=== PATIENT | male | born 1990 | race Two or more races ===

== ENCOUNTER 2017-01-17 19:19 | Emergency (ER) | payer MEDICAID ==
--- NOTE | 2017-01-21 11:11 | ER ---
ADMIT: 01/17/2017 RM/LOC: ER [facility] MR#: [id number] [id number] [place], [place] [address] KENDRICK DE DIOS [address] [place] [address] Emergency Room Report SEX: M AGE: 27 : 1990 DATE: 01/17/[address] Dougherty, kennel technician, at [facility]. CHIEF COMPLAINT: Right thigh pain. HISTORY OF PRESENT ILLNESS: This is a pleasant 27-year-old male, who presents to the ER with 2 days' duration of right thigh pain. The patient states he was playing basketball on Saturday when he felt "twinge" in his right thigh and had some associated pain throughout the belly of the quad and some difficulty with ambulation. 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 Dougherty. He states that he has been dosing his BeneFIX per the acute injury protocol as 4000 units every 12 hours. He typically uses 3000 units twice weekly on Mondays and Fridays. He has not phoned his kennel technician at this point. Denies any pain in the hip or knee or any limitations in range of motion. COURSE IN THE EMERGENCY ROOM: The patient was seen and examined. He does have some ecchymosis on the lateral aspect of his right thigh as well as over the medial aspect of his quad. No significant swelling is noted on exam. The muscle belly is firm, but overall the thigh compartment is not tensed by any means. He does have some tenderness throughout the muscle belly of the quad. He did not attempt to gait secondary to the pain. Vascularly, he is intact. His distal pedal pulse and posterior tib pulse is 2+ bilaterally. Sensation is intact. He has a normal range of motion of the hip and the knee. No evidence of any joint effusion on the right knee. Otherwise, unremarkable. IMPRESSION: Right quadriceps strain. DISPOSITION: I did reassure the patient that there are no concerning findings on exam today as his joints appear to be without acute effusion at this time. He certainly does have some tenderness and swelling in the quadriceps ADMIT: 01/17/2017 RM/LOC: ER [facility] MR#: [id number] [address] [address] KENDRICK DE DIOS [address] [place] [address], [place] [id number] Emergency Room Report SEX: M AGE: 27 : 1990 consistent with a recent injury. Continue to treat this conservatively with ice and Tylenol as needed for pain. I told him to avoid any aggressive massage or stretching as this could exacerbate the bleeding. He should also avoid heat for at least a week at this point. I did tell him to continue to monitor this and follow his factor replacement per his specialist prescription. Certainly, return with any worsening signs or symptoms, was given the name of Dr. Khan as a potential person as with whom to establish care as the patient is from [place], [place], has lived here since 2005 and just sees Hematology in [place] on an annual basis. States he has had trouble finding a provider comfortable with his condition locally. Questions were sought and answered to the best of my ability and to the patient's satisfaction, discharged in stable condition. AVILA Nayak / Tin Beaver MD / margret JOB #: [id number] CC: Tin Beaver MD, Attending Physician Virgilio Dougherty, Family Physician
== END 2017-01-17 20:34 | disposition home or self-care (01) ==
LOC: ER 19:19
DX: S76.111A Strain of right quadriceps muscle, fascia and tendon, initial encounter (principal); Z88.8 Allergy status to other drugs, medicaments and biological substances; W19.XXXA Unspecified fall, initial encounter; Y93.67 Activity, basketball